=== PATIENT | male | born 1960 | race Caucasian/White ===

== ENCOUNTER → 2020-02-26 | Outpatient (CLI) | payer BC | END | disposition home or self-care (01) | LOC: LABWHC1 13:18 | PROVIDERS: ATTEND Surgery Plastic and Reconstructive Surgery | DX: Z01.810 Encounter for preprocedural cardiovascular examination (principal) | CPT/HCPCS: 36415; 93005 ==

== ENCOUNTER 2020-03-14 06:33 | Day surgery (SDC) | payer BC ==
[2020-03-12 10:02] VITALS: BMI 23.0
[~2020-03-14 06:33] MED LIST: HEPARIN SODIUM,PORCINE 5,000 UNIT/ML 1 ML VIAL SQ PRN
[2020-03-14] MEDS ORDERED: LACTATED RINGERS 1,000 ML IV ONE ×3 (07:11→12:13)
[2020-03-14] MEDS ORDERED: GABAPENTIN 300 MG CAP PO STA (07:13)
[2020-03-14] MEDS ORDERED: ACETAMINOPHEN TAB 500 MG TAB PO STA (07:13)
[2020-03-14] MEDS ORDERED: MELOXICAM 7.5 MG TAB PO STA (07:13)
[2020-03-14] MEDS ORDERED: TAMSULOSIN 0.4 MG CAP.ER.24H PO STA (07:13)
--- NOTE | 2020-03-14 07:17 | P.GSHP ---
History of Present Illness H&P Date: 03/14/20 CHIEF COMPLAINT: Inguinal hernia, left HISTORY OF PRESENT ILLNESS: The patient is a 59-year-old male who presents with a history of swelling and pain along the left groin. He's noted increased swelling including pain of the area. Now he presents for repair of his inguinal hernia. PAST MEDICAL HISTORY: Please see list. PAST SURGICAL HISTORY: Please see list. MEDICATIONS: Please see list. ALLERGIES: Please see list. SOCIAL HISTORY: No illicit drug use FAMILY HISTORY: No reports of Crohn disease or ulcerative colitis. REVIEW OF ORGAN SYSTEMS: CONSTITUTIONAL: No reports of fevers or chills. No reports of weight loss despite prior attempts. GI: Denies any blood in stools or constipation. PHYSICAL EXAM: VITAL SIGNS: Stable GENERAL: Well-developed pleasant male in no acute distress. HEENT: No scleral icterus. Extraocular movements grossly intact. Moist buccal mucosa. NECK: Supple without lymphadenopathy. CHEST: Unlabored respirations. Equal bilateral excursions. CARDIOVASCULAR: Regular rate and rhythm. Distal 2+ pulses. ABDOMEN: Soft, nondistended. No peritoneal signs. Palpable defect of the left groin. MUSCULOSKELETAL: No clubbing, cyanosis, or edema. ASSESSMENT: 1. Inguinal hernia, left PLAN: 1. Recommend proceeding with a robotic inguinal repair with mesh with possible bilateral approach. 2. Benefits and risks of surgical intervention was discussed including possibility of open technique. 3. DVT prophylaxis. 4. Antibiotic prophylaxis. Past Medical History Past Medical History: No Reported History Additional Past Medical History / Comment(s): vertigo when turning head to left History of Any Multi-Drug Resistant Organisms: None Reported Additional Past Surgical History / Comment(s): lt ear growth removed. rt leg cortes tures Past Anesthesia/Blood Transfusion Reactions: No Reported Reaction, Motion Sickness Additional Past Anesthesia/Blood Transfusion Reaction / Comment(s): vertigo Smoking Status: Current every day smoker - Past Family History Mother Family Medical History: No Reported History Medications and Allergies Home Medications Medication Instructions Recorded Confirmed Type Cider Vinegar [Apple Cider Vinegar] 300 mg PO DAILY 03/12/20 03/14/20 History Mv-Min/Vit C/Glut/Lysine/Hc124 1 each PO DAILY 03/12/20 03/14/20 History [Airborne Tablet Chewable] Allergies Allergy/AdvReac Type Severity Reaction Status Date / Time grass pollen Allergy Rash/Hives Verified 03/14/20 07:03 Surgical - Exam Vital Signs Temp Pulse Resp BP Pulse Ox 98.5 F 71 16 139/81 96 03/14/20 06:59 03/14/20 06:59 03/14/20 06:59 03/14/20 06:59 03/14/20 06:59
[2020-03-14 07:20] LABS: Basophils # (A) 0.1 k/uL (0-0.2); Basophils % (A) 1 %; Eosinophils # (A) 0.3 k/uL (0-0.7); Eosinophils % (A) 4 %; HCT 44.9 % (39.0-53.0); HGB 15.3 gm/dL (13.0-17.5); Lymphocytes # (A) 3.4 k/uL (1.0-4.8); Lymphocytes % (A) 38 %; MCH 32.1 pg (25.0-35.0); MCHC 34.2 g/dL (31.0-37.0); MCV 93.9 fL (80.0-100.0); Mean Platelet Volume 7.6; Monocytes # (A) 0.6 k/uL (0-1.0); Monocytes % (A) 7 %; Neutrophils # (A) 4.3 k/uL (1.3-7.7); Neutrophils % (A) 49 %; Platelet Count 216 k/uL (150-450); RBC 4.78 m/uL (4.30-5.90); RDW 12.5 % (11.5-15.5); WBC 8.8 k/uL (3.8-10.6)
[2020-03-14] MEDS ORDERED: ONDANSETRON 4 MG/2 ML VIAL ONE (07:20)
[2020-03-14 07:31] LABS: ALT 18 U/L (4-49); AST 27 U/L (17-59); African American GFR (CKD) >90 (>60 ml/min/1.73 sqM); Albumin 4.6 g/dL (3.5-5.0); Alkaline Phosphatase 61 U/L (38-126); Anion Gap 7 mmol/L; Blood Urea Nitrogen 17 mg/dL (9-20); Calcium 9.4 mg/dL (8.4-10.2); Carbon Dioxide 26 mmol/L (22-30); Chloride 106 mmol/L (98-107); Glucose 117 mg/dL (74-99); Non-African American GFR(CKD) >90 (>60 ml/min/1.73 sqM); Potassium 4.2 mmol/L (3.5-5.1); Sodium 139 mmol/L (137-145); Total Bilirubin 1.1 mg/dL (0.2-1.3); Total Protein 7.9 g/dL (6.3-8.2)
[2020-03-14] MEDS ORDERED: DEXAMETHASONE SOD PHOSPHATE 4 MG/ML 1 ML VIAL IVP ONE (07:32)
[2020-03-14] MEDS ORDERED: SCOPOLAMINE 1.5MG/72HR PATCH TRANSDERM ONE (07:34)
[2020-03-14] MEDS ORDERED: fentaNYL (PF) 50 MCG/ML 2 ML AMP IVP ONE ×2 (08:12→08:15)
[2020-03-14] MEDS ORDERED: MIDAZOLAM 2 MG/2 ML VIAL IVP ONE ×2 (08:12→08:15)
[2020-03-14] MEDS ORDERED: KETOROLAC 15 MG/ML 1 ML VIAL ONE (09:01)
[2020-03-14] MEDS ORDERED: GLYCOPYRROLATE 0.2 MG/ML 2 ML VIAL ONE (09:01)
[2020-03-14] MEDS ORDERED: fentaNYL (PF) 50 MCG/ML 2 ML AMP ONE (09:01)
[2020-03-14] MEDS ORDERED: LIDOCAINE 1% INJ 10MG/ML (20 ML MDV) ONE (09:01)
[2020-03-14] MEDS ORDERED: PROPOFOL 10 MG/ML 20 ML VIAL IV ONE (09:01)
[2020-03-14] MEDS ORDERED: ROCURONIUM 10 MG/ML (10 ML VIAL) IV ONE (09:01)
[2020-03-14] MEDS ORDERED: ROPIVACAINE 5 MG/ML 30 ML VIAL ONE (09:01)
[2020-03-14] MEDS ORDERED: MIDAZOLAM 2 MG/2 ML VIAL ONE (09:01)
[2020-03-14] MEDS ORDERED: NEOSTIGMINE 1 MG/ML 10 ML VIAL ONE (09:01)
[2020-03-14] MEDS ORDERED: SUCCINYLCHOLINE CHLORIDE 100 MG/5 ML SYR IV ONE (09:01)
--- NOTE | 2020-03-14 09:46 | P.ANPRN ---
Procedure Note - Anesthesia - Nerve Block Performed Bilateral Transversus Abdominis Single Time Out Performed: Yes (811) Date of Procedure: 03/14/20 Procedure Start Time: 08:12 Procedure Stop Time: 08:17 Location of Patient: PreOp Indication: Acute Post-Operative Pain, Requested by Surgeon Specifically requested for management of pain by : Laurie Salmeron Sedation Type: Sedate with meaningful contact maintained Preparation: Sterile Prep Position: Supine Catheter: None Needle Types: Pajunk Needle Gauge: 21 Ultrasound used to visualize needle placement: Yes Ultrasound used to observe medication spread: Yes Injectate: 0.5% Ropivacaine (see comment for volume) (15cc each side 30 cc total) Blood Aspirated: No Pain Paresthesia on Injection Noted: No Resistance on Injection: Normal Image Stored and Saved: Yes Events: Uneventful and Well Tolerated
[2020-03-14] MEDS ORDERED: LIDOCAINE 2%-EPI 1:100,000 20 ML VIAL SQ ONE (09:47)
[2020-03-14] MEDS ORDERED: MEPERIDINE 50 MG/ML SYRINGE IVP ONE (10:52)
[2020-03-14 10:56] VITALS: TEMP 98.6
--- NOTE | 2020-03-14 10:56 | P.OP ---
Date of Procedure: 03/14/20 Description of Procedure: SURGEON: LAURIE SALMERON MD PREOPERATIVE DIAGNOSES: 1. Initial left inguinal hernia 2. Tobacco use 3. Previous open appendectomy POSTOPERATIVE DIAGNOSES: 1. Initial left inguinal hernia, indirect 2 cm, incarcerated 2. Tobacco use 3. Previous open appendectomy 4. Omentum to abdominal wall peritoneal adhesions, moderate OPERATION: 1. Robotic assisted da Moises Xi laparoscopic lysis of adhesions 2. Robotic assisted da [facility] Xi laparoscopic reduction and repair of left inguinal hernia repair with ventralight ST mesh, 11.4 cm. Anesthesia: GETA, local Estimated Blood Loss (ml): 5 Pathology: other (Left inguinal sac) Condition: stable Disposition: floor COMPLICATIONS: None. Operative Findings: 1. Large left inguinal indirect hernia, 2 cm, Nyhus type II, incarcerated 2. Moderate to severe adhesions omentum to abdominal wall pelvis with lysis of adhesions over 30 minutes INDICATIONS: The patient is a 59-year-old gentleman who presents with left inguinal hernia. Now presents for definitive surgical intervention. Laparoscopic versus open and robotic approaches were discussed. Benefits and risks including bleeding, infection, injury to the vas deferens as well as sterility and chronic groin pain were reviewed. Placement of mesh was also described. Informed consent was obtained. DESCRIPTION: In the preoperative area, the patient was marked with indelible marker along the left groin. The patient was brought to the operating room and laid in supine position. After general induction, the abdomen had been prepped and draped in standard sterile fashion. Ioban draping was also placed. Prior to incision, a timeout protocol was confirmed with surgical team regarding patient's name including procedures to be performed and location along the left groin. Initial positioning for the robotic assisted ports were selected whereby 20 cm superior to the target anatomy, 0 degree 5 mm laparoscopic trocar entry was performed at the left upper quadrant. The abdomen was insufflated to 15 mmHg which he had tolerated well. Diagnostic laparoscopy demonstrated moderate omental adhesions from his previous open appendectomy. Additionally the sigmoid colon was incarcerated into the left groin with a large indirect left inguinal hernia 2 cm in size. Next, along the epigastrium, 8 mm robot trocar was placed. An 8-mm robotic trocar was placed under direct visualization at the right upper quadrant. The 5 mm port was exchanged for a 8 mm trocar. All trocars were positioned between 8 to 10-cm apart from each other. The patient was placed in steep reverse Trendelenburg position, 21. The [employer] XI robot was primed, draped, prepared for docking along the upper abdomen of the patient. I then went to the [employer] console. The surgical services assistant was at bedside for exchange of the robot arms and equipment. Moderate to severe adhesions were identified in the pelvis especially along the right groin from previous open appendectomy. Extensive lysis of adhesions using scissors with heart over 30 minutes was performed to view the right groin. The right groin was unremarkable. At the left groin, over 3 cm direct inguinal hernia was identified. The hernia sac was evaginated whereby the peritoneum was scored using Endo scissors with cautery. The hernia sac had reached to the scrotum and was transected using Vessel sealer. Once completely reduced into the abdominal cavity, the peritoneal sac of the hernia was identified. The sac was resected and then passed off for further pathological analysis. The size of the hernia defect was 2 cm with intraoperative films obtained. Using nonabsorbable 2-0 VLOC, the peritoneal defect of the left inguinal hernia site was closed using a pursestring suture. The defect was found to be completely closed with complete reduction of the left inguinal hernia was confirmed. As an onlay, an 11.[address] mesh by [employer] was cut in half and entered into the abdominal cavity via the 8 mm trocar. The mesh was tacked to the pelvis using nonabsorbable 2-0 VLOC x 9-inch length sutures. The robot was undocked from the patient's bedside. I then rescrubbed into the case. Insufflation was released from the abdominal cavity and all instruments were removed from the abdominal cavity. Additional palm pressure was applied along the left groin as well as releasing any air along the scrotum and left groin. The rest of incisions were reapproximated using 4-0 Monocryl in a running subcuticular fashion. Local anesthetic was placed along the incision including for a groin block. Incisions were cleansed using dilute hydrogen peroxide. Liquid glue was applied to the skin. At the end of the procedure, the needle, sponge and instrument counts had been verified correct by the surgical aide. The patient had tolerated the procedure well and was taken to the postanesthesia care unit in stable condition. Plan - Discharge Summary Discharge Rx Participant: No New Discharge Prescriptions: New Ibuprofen [Motrin] 600 mg PO Q8HR PRN #30 tab PRN Reason: pain Acetaminophen Tab [Tylenol Tab] 1,000 mg PO Q6HR PRN #30 tablet PRN Reason: Pain Continue Mv-Min/Vit C/Glut/Lysine/Hc124 [Airborne Tablet Chewable] 1 each PO DAILY Cider Vinegar [Apple Cider Vinegar] 300 mg PO DAILY Discharge Medication List Cider Vinegar [Apple Cider Vinegar] 300 mg PO DAILY 03/12/20 [History] Mv-Min/Vit C/Glut/Lysine/Hc124 [Airborne Tablet Chewable] 1 each PO DAILY 03/12/20 [History] Acetaminophen Tab [Tylenol Tab] 1,000 mg PO Q6HR PRN #30 tablet 03/14/20 [Rx] Ibuprofen [Motrin] 600 mg PO Q8HR PRN #30 tab 03/14/20 [Rx] Follow up Appointment(s)/Referral(s): Laurie Salmeron MD [STAFF PHYSICIAN] - 03/18/20 Patient Instructions/Handouts: *[facility] - Scopalamine Patch Instructions, Inguinal Hernia Repair (DC), Laparoscopic Herniorrhaphy (DC), *[facility] - Managing Your Pain After Surgery Without Opioids Activity/Diet/Wound Care/Special Instructions: No lifting over 10 pounds in 2 weeks until Mar 28. May shower. No bath tub soaks for two weeks until Mar 28 Diet as tolerated. Use Tylenol and ibuprofen or Aleve scheduled for the next 24-48 hours for best pain relief. Use ice along incisions for the today to prevent swelling. Discharge Disposition: HOME SELF-CARE
[2020-03-14 12:39] VITALS: RESP 18
[2020-03-14 12:54] VITALS: BP 130/80; PULSE 78
== END 2020-03-14 13:03 | disposition home or self-care (01) ==
LOC: OR 06:33
PROVIDERS: ATTEND Surgery Plastic and Reconstructive Surgery
DX: K40.30 Unilateral inguinal hernia, with obstruction, without gangrene, not specified as recurrent (principal); K66.0 Peritoneal adhesions (postprocedural) (postinfection); Z90.49 Acquired absence of other specified parts of digestive tract; R42 Dizziness and giddiness; Z98.890 Other specified postprocedural states; F17.210 Nicotine dependence, cigarettes, uncomplicated; Z91.048 Other nonmedicinal substance allergy status
CPT/HCPCS: 49329; 49650; S2900; 64488; 80053; 85025; 88302

== ENCOUNTER → 2022-02-19 | Outpatient (CLI) | payer BC ==
--- NOTE | 2022-02-19 11:22 | CT ---
EXAMINATION TYPE: CT urogram wo/w con DATE OF EXAM: 02/19/2022 COMPARISON: None HISTORY: gross hematuria CT DLP: 2415 mGycm Automated exposure control for dose reduction was used. CONTRAST: Performed with IV Contrast, patient injected with 100 mL of Isovue 300. FINDINGS: There is no evidence of hydronephrosis or nephrolithiasis. There is no suspicious renal mass. 4 mm hy podensity upper pole right kidney too small to characterize but most difficult tiny simple cyst. No filling defect within the visualized renal pelvis. Ureters are segmentally visualized and no defin ite hydroureter or filling defect within the opacified levels visualized. There is mild bladder wall thickening with no evidence of discrete mass. Prostate gland is enlarged. Changes of diverticulosis. No pathologic adenopathy. Aorta normal caliber. Bowel gas pattern nonspeci fic. Liver, gallbladder, spleen, adrenal glands, and pancreas have a normal appearance. Lung bases cl ear. 2 mm hypodense lesion left lobe of the liver near the dome most typical of a tiny cyst. Severe d egenerative disc disease L5-S1. IMPRESSION: 1. No hydronephrosis or nephrolithiasis. No suspicious renal mass. There is mild concentric wall thic kening of the bladder associated with mild cystitis. 2. Prostate hypertrophy. 3. Distal left ureter is not opacified and limited in evaluation. There is minimal fullness at the UV junction best noted on axial image 67 series 9. This could be correlated with cystoscopy as clinical ly warranted.
== END | disposition home or self-care (01) ==
LOC: RADCTMAIN 08:32
PROVIDERS: ATTEND Urology
DX: N40.0 Benign prostatic hyperplasia without lower urinary tract symptoms (principal); N30.91 Cystitis, unspecified with hematuria
CPT/HCPCS: 74178; 74400; Q9967